=== PATIENT | female | born 1970 | race Caucasian/White ===

== ENCOUNTER 2023-06-08 09:58 | Emergency (ER) | payer OTHER, BC ==
[~2023-06-08] VITALS: Ht 162.6 cm; Wt 77.1 kg
[2023-06-08 11:02] LABS: BASOPHILS ABSOLUTE AUTO 0.05 K/mm3 (0.00-0.23); BASOPHILS PERCENT AUTO 0 % (0-2); EOSINOPHILS ABSOLUTE AUTO 0.04 K/mm3 (0.00-0.68); EOSINOPHILS PERCENT AUTO 0 % (0-6); Hemoglobin 13.1 g/dL (11.5-16.0); IMMATURE GRAN ABSOLUTE AUTO 0.09 K/mm3 (0.00-0.10); IMMATURE GRAN PERCENT AUTO 1 % (0-1); LYMPHOCYTES ABSOLUTE AUTO 1.11 K/mm3 (0.84-5.20); LYMPHOCYTES PERCENT AUTO 8 % (21-46); MONOCYTES ABSOLUTE AUTO 1.07 K/mm3 (0.16-1.47); MONOCYTES PERCENT AUTO 7 % (4-13); Mean Corpuscular HGB 29.6 pg (26.0-34.0); Mean Corpuscular HGB Conc 34.5 g/dL (31.5-36.5); Mean Corpuscular Volume 86 fL (80-100); Mean Platelet Volume 10.4 fL (9.1-12.4); NEUTROPHILS ABSOLUTE AUTO 12.43 K/mm3 (1.96-9.15); NEUTROPHILS PERCENT AUTO 84 % (41-73); Platelet Count 373 K/mm3 (150-400); RDW Coefficient Variation 13.9 % (11.7-14.2); RDW Standard Deviation 43.4 fL (35.1-46.3); Red Blood Cell Count 4.43 M/mm3 (3.80-5.20); White Blood Cell Count 14.79 K/mm3 (4.00-11.30)
[2023-06-08 11:20] LABS: Albumin, Blood 3.4 g/dL (3.4-5.0); Albumin/Globulin Ratio 0.8 (0.8-1.8); Bilirubin, Total 0.4 mg/dL (0.1-1.0); Bun/Creatinine Ratio 23.6 (12.0-20.0); Calcium, Blood 8.6 mg/dL (8.5-10.1); Creatinine, Blood 0.59 mg/dL (0.40-1.00); Globulin, Blood 4.3 g/dL (2.2-4.0); Potassium, Blood 4.3 mmol/L (3.5-5.5); Total Protein, Blood 7.7 g/dL (6.4-8.2)
[2023-06-08 12:39] LABS: Source, Urine Clean Catch
[2023-06-08 12:56] LABS: Appearance, Urine Clear (Clear); Bilirubin, Urine Neg (Neg); Blood, Urine Neg (Neg); Glucose Qualitative, Urine Neg (Neg); Ketones, Urine Neg (Neg); Leukocyte Esterase, Urine Neg (Neg); Nitrite, Urine Neg (Neg); Protein, Urine Neg (Neg); Urobilinogen, Urine NORM (Normal)
[2023-06-08 13:03] LABS: Color, Urine Pale Yellow (P-Yellow)
[2023-06-08 13:30] VITALS: BP 126/66
[2023-06-08] MEDS ORDERED: HYDROCODONE-AC1 EA10 PO (15:22)
[2023-06-08] MEDS ORDERED: CYCLOBENZAPRINE5 MG PO (15:50)
== END 2023-06-08 15:51 | disposition home or self-care (01) ==
LOC: ER 09:58
PROVIDERS: Physician Assistant
DX: S32.018A Other fracture of first lumbar vertebra, initial encounter for closed fracture (principal); S22.089A Unspecified fracture of T11-T12 vertebra, initial encounter for closed fracture; S39.91XA Unspecified injury of abdomen, initial encounter; V43.52XA Car driver injured in collision with other type car in traffic accident, initial encounter; Y92.410 Unspecified street and highway as the place of occurrence of the external cause
CPT/HCPCS: 71045; 72100; 73600; 74177; 80053; 81003; 83690; 84703; 85025; 96374-59; 96375; 99284-25; A9270; J1885; J2270; J2405; L0160; Q9967

== ENCOUNTER 2024-05-23 07:14 | Emergency (ER) | payer BC ==
[~2024-05-23] VITALS: Ht 162.6 cm; Wt 72.6 kg
[~2024-05-23 07:14] MED LIST: CYCLOBENZAPRINE5 MG PO; HYDROCODONE-AC1 EA10 PO
[2024-05-23 07:27] VITALS: BP 134/86
[2024-05-23] MEDS ORDERED: Ondansetron HCl 2 MG / ML 2ML Vial IV ONE (08:05)
[2024-05-23] MEDS ORDERED: HYDROmorphone HCl/Pf 1MG SYR IV ONE ×2 (08:05→09:20)
[2024-05-23] MEDS ORDERED: ONDA4ODT MM (10:04)
[2024-05-23] MEDS ORDERED: Percocet 5-3251 EACH PO (10:04)
[2024-05-23] MEDS ORDERED: Ondansetron 4 MG SoluTab SL ONE (10:15)
== END 2024-05-23 10:57 | disposition home or self-care (01) ==
LOC: ER 07:14
DX: S52.592A Other fractures of lower end of left radius, initial encounter for closed fracture (principal); S52.612A Displaced fracture of left ulna styloid process, initial encounter for closed fracture; Z79.899 Other long term (current) drug therapy; Z59.89 Other problems related to housing and economic circumstances; W18.30XA Fall on same level, unspecified, initial encounter
CPT/HCPCS: 25505; 73100; 73110; 96374-59; 96375-59; 96376-59; 99283-25; A9270; J1171; J2405

== ENCOUNTER 2024-05-28 09:38 | Day surgery (SDC) | payer BC ==
[~2024-05-28] VITALS: Ht 162.6 cm; Wt 76.2 kg
[~2024-05-28 09:38] MED LIST changes: +ONDA4ODT MM; +Percocet 5-3251 EACH PO
[2024-05-28] MEDS ORDERED: Dexamethasone Sod Phos 10 MG/ML 1ML VIAL ONE (09:48)
[2024-05-28] MEDS ORDERED: Ondansetron HCl 2 MG / ML 2ML Vial ONE (09:48)
[2024-05-28] MEDS ORDERED: HYDROmorphone HCl/Pf 1MG SYR ONE (09:56)
[2024-05-28] MEDS ORDERED: Bupivacaine 0.5% HCl 5 MG/ML 30MLVIAL ONE (10:01)
[2024-05-28] MEDS ORDERED: Midazolam HCl 1MG / ML 2ML Vial ONE (10:02)
[2024-05-28] MEDS ORDERED: FentaNYL Citrate 50 MCG/ML 2 ML Injection ONE (10:02)
[2024-05-28] MEDS ORDERED: ESTRADIOL PO (10:04)
[2024-05-28] MEDS ORDERED: PROGESTERONE (10:05)
[2024-05-28] MEDS ORDERED: Lactated Ringer's 1,000 ML IV ONE (10:19)
[2024-05-28] MEDS ORDERED: CeFAZolin Sodium 2,000 MG VIAL ONE (10:37)
[2024-05-28] MEDS ORDERED: Lidocaine HCl/Pf 1% 5 ML VIAL ONE (10:41)
[2024-05-28] MEDS ORDERED: propofoL 60 ML IV ONE (10:53)
--- NOTE | 2024-05-28 10:53 | NUR ---
05/28/24 1053 Aurea Esqueda 1033: TIMEOUT 1045: INJECTION BY DR ALBA/START 1048: END OF BLOCK PROCEDURE
[2024-05-28 12:56] VITALS: BP 159/87
== END 2024-05-28 13:40 | disposition home or self-care (01) ==
LOC: ORSCSDS 09:38
PROVIDERS: Orthopaedic Surgery
PROC: 0PSH04Z Reposition Right Radius with Internal Fixation Device, Open Approach (ICD-10-PCS; principal; 2024-05-28 11:00)
DX: S52.502A Unspecified fracture of the lower end of left radius, initial encounter for closed fracture (principal)
CPT/HCPCS: C1713; J0690; J1100; J1171; J2003; J2250; J2405; J2704; J3010